=== PATIENT | male | born 1980 | race Caucasian/White ===

== ENCOUNTER 2025-07-29 06:58 | Day surgery (SDC) | payer BC ==
[~2025-07-29] VITALS: Ht 193 cm; Wt 121.1 kg
[2025-07-29] MEDS: ringers solution, lacted 1,000 ML IV SCH (05:30)
[~2025-07-29 06:58] MED LIST: NO HOME MEDS; simethicone 40mg/0.6ml oral drops 15ml PO ONE
[2025-07-29 07:21] VITALS: BP 126/83; PULSE 74; RESP 16; TEMP 97.3; O2SAT 95
[2025-07-29] MEDS ORDERED: fentaNYL/PF 50MCG/1 ML 2ML syringe ONE (08:18)
[2025-07-29] MEDS ORDERED: midazolam 1 mg/ML 2ml injection ONE (08:19)
[2025-07-29] MEDS ORDERED: propofol inj 20 ML IV ONE ×2 (08:31→08:40)
[2025-07-29 08:45] VITALS: BP 101/67; PULSE 69; RESP 15; O2SAT 96
[2025-07-29 08:55] VITALS: BP 121/77; PULSE 71; RESP 16; O2SAT 96
[2025-07-29 09:05] VITALS: BP 125/72; PULSE 75; RESP 14; O2SAT 93
[2025-07-29 09:15] VITALS: BP 121/73; PULSE 77; RESP 13; O2SAT 98
== END 2025-07-29 09:15 | disposition home or self-care (01) ==
LOC: PAS 06:58
PROVIDERS: ATTEND Internal Medicine Gastroenterology
DX: Z12.11 Encounter for screening for malignant neoplasm of colon (principal); E78.5 Hyperlipidemia, unspecified; Z82.49 Family history of ischemic heart disease and other diseases of the circulatory system; Z83.438 Family history of other disorder of lipoprotein metabolism and other lipidemia
CPT/HCPCS: 45378; J2250; J2704; J3010; J7120; Z7512; A4615; A4620